=== PATIENT | female | born 2005 | race Caucasian/White ===

== ENCOUNTER 2025-09-07 12:51 | Emergency (ER) | payer OTHER | END 2025-09-07 14:14 | disposition home or self-care (01) | LOC: FB.ED 12:51 | DX: S61.216A Laceration without foreign body of right little finger without damage to nail, initial encounter (principal); W23.0XXA Caught, crushed, jammed, or pinched between moving objects, initial encounter | CPT/HCPCS: 12001; 99282; 99283; J2003 ==